=== PATIENT | female | born 2000 | race Two or more races ===

== ENCOUNTER 2022-04-24 12:35 | Inpatient (IN) | payer OTHER ==
[~2022-04-24] VITALS: Ht 152.4 cm; Wt 0.5 kg
[~2022-04-24 12:35] MED LIST: PRENATAL + DHA1 EAC1 PO
== END 2022-04-27 17:20 | disposition home or self-care (01) | DRG 788 ==
LOC: OB/GYN 12:35 → LDR 12:35 → OB/GYN 04-25 12:09
PROVIDERS: Obstetrics & Gynecology; ADMIT Obstetrics & Gynecology; ATTEND Obstetrics & Gynecology
PROC: 4A1HXCZ Monitoring of Products of Conception, Cardiac Rate, External Approach (ICD-10-PCS; 2022-04-24)
PROC: BY4CZZZ Ultrasonography of Second Trimester, Single Fetus (ICD-10-PCS; 2022-04-24)
PROC: 10D00Z1 Extraction of Products of Conception, Low, Open Approach (ICD-10-PCS; principal; 2022-04-24 16:00)
DX: O14.14 Severe pre-eclampsia complicating childbirth (principal); O60.12X0 Preterm labor second trimester with preterm delivery second trimester, not applicable or unspecified; Z3A.25 25 weeks gestation of pregnancy; Z37.0 Single live birth; Z20.822 Contact with and (suspected) exposure to COVID-19